=== PATIENT | female | born 1925 | race Hispanic/Latino ===

== ENCOUNTER 2017-11-24 12:35 | Emergency (ER) | payer MEDICARE ==
[~2017-11-24 12:35] MED LIST: ADRENALIN ONE; ATROPINE ONE; CALCIUM CHLORIDE IV ONE
[2017-11-24] MEDS ORDERED: LEVOPHED DRIP 4 MG/NS 250 ML 4 MG/250 ML BAG IV ONE (12:43)
[2017-11-24] MEDS ORDERED: SUBLIMAZE ONE (12:51)
--- NOTE | 2017-11-24 12:59 | Emergency Department Report ---
ED CPR HPI - General Chief Complaint: Cardiac Arrest/CPR Stated Complaint: CARDIAC Time Seen by Provider: 11/24/17 12:58 Source: family, EMS (verbal report received from EMS.ems notes not available at time of chart dictation) Mode of arrival: Stretcher Limitations: Other (patient intubated, nonverbal and is receiving chest compressions) - History of Present Illness Initial Comments: This is an 89-year-old female who is not known to this provider previously who is brought to the hospital as an out of hospital cardiac arrest. Apparently, patient was recently discharged on home hospice. Patient collapsed while using the restroom. EMS was contacted, and found the patient to be in bradycardic rhythm, which progressed to pulseless electrical activity. EMS did not have access to patient's advanced directives or goals of care. The patient was therefore intubated, and received chest compressions as per ACLS protocol. Upon arrival to the ER, the patient was initially pulseless, pupils fixed and dilated, not breathing spontaneously, and receiving bag-valve- mask ventilation through an endotracheal tube. She received standard ACLS medications and interventions. Shortly thereafter, the patient regained pulses. Her son showed up at that time. He indicated his goals of care were for comfort only, and he indicated of the patient is a DO NOT RESUSCITATE, DO NOT INTUBATE. He further indicated that he would like medication to be given to control pain and anxiety, but does not want any invasive measures. He specifically did not want chest compressions conformed did not want additional CPR performed. This conversation is witnessed by nurse Marc Perez, as well as nurse Ramila Marrero. Shortly after this, the patient lost pulses and she was pronounced . The patient's home hospice was able to procure a DNR/DNI paperwork at this point , which the nurses will scan into the chart. Patient's home hospice workers are currently here working with the patient, and they will assist with further arrangements. Complaint: collapsed during rest -: minute(s) Place: home Initial Findings in the Field: PEA, other rhythm ROSC in the Field: No Associated Injuries: No Treatments Prior to Arrival: intubation, chest compressions, epinephrine mgs # ( 2) ED Review of Systems ROS: Stated complaint: CARDIAC Other details as noted in HPI Comment: Unobtainable due to pts medical conditions ED Physical Exam - General Limitations: Other General appearance: other (intubated, GCS.) - Head Head exam: Present: normal inspection - Eye Eye exam: Present: other (pupils are fixed and dilated) - ENT ENT exam: Present: mucous membranes dry, other (endotracheal tube is noted in the oropharynx) - Neck Neck exam: Present: normal inspection - Respiratory Respiratory exam: Present: other (left anterior chest wall ecchymosis and left cardiac device scar noted in the left superior chest.). Absent: normal lung sounds bilaterally - Cardiovascular Cardiovascular Exam: Present: other (patient has no pulses) - GI/Abdominal GI/Abdominal exam: Present: soft - Extremities Exam Extremities exam: Absent: normal inspection (patient has no capillary refill. Her extremities are florentino and mottled) - Back Exam Back exam: Present: normal inspection - Neurological Exam Neurological exam: Present: other (nonverbal, GCS of 3) - Psychiatric Psychiatric exam: Present: other (patient is nonverbal) - Skin Skin exam: Present: ecchymosis ED Medical Decision Making - Medical Decision Making Differential diagnosis, including but not limited to: Acute coronary syndrome, arrhythmia, pulmonary embolus, sepsis, multiorgan dysfunction Critical care attestation.: If time is entered above; I have spent that time in minutes in the direct care of this critically ill patient, excluding procedure time. ED Disposition Clinical Impression: Cardiac arrest Disposition: DC-20 Is pt being admited?: No Does the pt Need Aspirin: No Condition: Undetermined Referrals: PRIMARY CARE, [Primary Care Provider] - 3-5 Days
[2017-11-24 13:33] VITALS: BP 91/46
== END 2017-11-24 14:05 ==
LOC: ED 12:35
DX: I46.9 Cardiac arrest, cause unspecified (principal)
CPT/HCPCS: 92950; 99285; J3010; J0171; J0461